=== PATIENT | male | born 1995 | race Caucasian/White ===

== ENCOUNTER 2019-02-26 16:06 | Emergency (ER) | payer BC, OTHER ==
[2019-02-26] MEDS ORDERED: TETRACAINE HCL 0.5% 4ML OPTH ONE (18:02)
[2019-02-26] MEDS ORDERED: FLUORESCEIN SODIUM 1 MG/WRAP ONE (18:03)
--- NOTE | 2019-02-26 18:28 | ER ---
Nurse's Notes [facility] Name: Rui Ross Age: 23 yrs Sex: Male : 1995 Arrival Date: 02/26/2019 Time: 16:08 Bed 9 Private MD: Don Wise Diagnosis: Injury of conjunctiva and corneal abrasion without foreign body, right eye Presentation: 02/26 16:34 Presenting complaint: Patient states: I went to [facility] and they told me I had a la1 corneal ulcer and gave me some drops but then after I left they called me and told me to come to the ER for further testing to rule something, I forgot what it was though. Transition of care: patient was not received from another setting of care. Onset of symptoms was February 26, 2019. Risk Assessment: Do you want to hurt yourself or someone else? Patient reports no desire to harm self or others. Initial Sepsis Screen: Does the patient meet any 2 criteria? No. Patient's initial sepsis screen is negative. Does the patient have a suspected source of infection? No. Patient's initial sepsis screen is negative. Care prior to arrival: None. 16:34 Method Of Arrival: Ambulatory la1 16:34 Acuity: NOAH 4 la1 Historical: - Allergies: 16:34 Sulfa (Sulfonamide Antibiotics); la1 - PMHx: 16:34 None; la1 - Immunization history:: Adult Immunizations up to date. - Social history:: Smoking status: Patient/guardian denies using tobacco. - Ebola Screening: : No symptoms or risks identified at this time. Screenin:16 Abuse screen: Denies threats or abuse. Nutritional screening: No deficits noted. la1 Tuberculosis screening: No symptoms or risk factors identified. Fall Risk None identified. Assessment: 17:15 Reassessment: EOMS intact, visual marinelli intact. General: Appears in no apparent la1 distress. Behavior is calm, cooperative. Pain: Complains of pain in right eye. Neuro: Level of Consciousness is awake, alert, obeys commands. Cardiovascular: Thorax. EENT: Sclera/Cornea are reddened in outer aspect of conjuctiva of right eye and inner aspect of conjuctiva of right eye corneal ulcer noted to right eye. 18:34 Reassessment: Patient appears in no apparent distress at this time. No changes from la1 previously documented assessment. Patient and/or family updated on plan of care and expected duration. Pain level reassessed. Patient is alert, oriented x 3, equal unlabored respirations, skin warm/dry/pink. Vital Signs: 16:33 BP 113 / 56; Pulse 68; Resp 16; Temp 98.6; Pulse Ox 100% on R/A; Weight 61.23 kg; la1 Height 5 ft. 6 in. (167.64 cm); 16:33 Body Mass Index 21.79 (61.23 kg, 167.64 cm) la1 Visual Acuity: 17:50 Left Eye Visual acuity 20/20, Pupil size 4 mm, ; Right Eye Visual acuity 20/20, Pupil la1 size 4 mm, ; Both Eyes Visual acuity 20/20; With Lenses; ED Course: 16:08 Patient arrived in ED. ag5 16:09 Don Wise MD is Private Physician. ag5 16:35 Triage completed. la1 16:35 Arm band placed on right wrist. la1 17:15 Beltran Pepe RN is Primary Nurse. la1 17:16 Call light in reach. la1 17:28 Lauri No NP is PHCP. pm1 17:28 Amol Yanez MD is Attending Physician. pm1 18:27 Meghan Argueta MD is Referral Physician. pm1 18:34 No provider procedures requiring assistance completed. Patient did not have IV access la1 during this emergency room visit. Administered Medications: 17:51 Drug: Tetracaine Drops 0.5 % 1 drops Route: Ophthalmic; Site: right eye; la1 Outcome: 18:28 Discharge ordered by . pm1 18:34 Discharged to home ambulatory. la1 18:34 Condition: stable 18:34 Discharge instructions given to patient, Instructed on discharge instructions, follow up and referral plans. medication usage, Demonstrated understanding of instructions, follow-up care, medications. 18:35 Patient left the ED. la1 Signatures: Beltran Pepe RN RN la1 Lauri No NP ARMORED VEHICLE OFFICER pm1 Lam Durant ag5
--- NOTE | 2019-02-26 18:28 | EDPHYS ---
[facility] Name: Rui [facility] Age: 23 yrs Sex: Male : 1995 Arrival Date: 02/26/2019 Time: 16:08 Bed 9 Private MD: Don Wise ED Physician Amol Yanez HPI: 02/26 18:27 This 23 yrs old Male presents to ER via Ambulatory with complaints of Right pm1 Eye Problem. 18:27 The patient is experiencing pain, The patient sustained an abrasion, to the right eye, pm1 caused by contact lens. Onset: The symptoms/episode began/occurred yesterday. Duration: the symptoms are continuous. Associated signs and symptoms: Pertinent positives: None. Pertinent negatives: ear ache, fever. Patient wears glasses, wears soft contacts. Severity of symptoms: in the emergency department the symptoms have improved markedly, from yesterday. The patient has been recently seen at an urgent care, today, instructed to follow up to the ER for further evaluation. Was prescribed tobramycin drops. Historical: - Allergies: 16:34 Sulfa (Sulfonamide Antibiotics); la1 - PMHx: 16:34 None; la1 - Immunization history:: Adult Immunizations up to date. - Social history:: Smoking status: Patient/guardian denies using tobacco. - Ebola Screening: : No symptoms or risks identified at this time. ROS: 18:27 Constitutional: Negative for fever, chills, and weight loss. pm1 18:27 ENT: Negative for injury, pain, and discharge, Neck: Negative for injury, pain, and swelling, Cardiovascular: Negative for chest pain, palpitations, and edema, Respiratory: Negative for shortness of breath, cough, wheezing, and pleuritic chest pain, Abdomen/GI: Negative for abdominal pain, nausea, vomiting, diarrhea, and constipation, Back: Negative for injury and pain, MS/Extremity: Negative for injury and deformity, Skin: Negative for injury, rash, and discoloration, Neuro: Negative for headache, weakness, numbness, tingling, and seizure. 18:27 Eyes: Positive for pain, redness, Negative for blurry vision, discharge, matting. Exam: 18:27 Constitutional: This is a well developed, well nourished patient who is awake, alert, pm1 and in no acute distress. Head/Face: Normocephalic, atraumatic. ENT: Nares patent. No nasal discharge, no septal abnormalities noted. Tympanic membranes are normal and external auditory canals are clear. Oropharynx with no redness, swelling, or masses, exudates, or evidence of obstruction, uvula midline. Mucous membranes moist. 18:27 Neck: Trachea midline, no thyromegaly or masses palpated, and no cervical lymphadenopathy. Supple, full range of motion without nuchal rigidity, or vertebral point tenderness. No Meningismus. Chest/axilla: Normal chest wall appearance and motion. Nontender with no deformity. No lesions are appreciated. Cardiovascular: Regular rate and rhythm with a normal S1 and S2. No gallops, murmurs, or rubs. Normal PMI, no JVD. No pulse deficits. Respiratory: Lungs have equal breath sounds bilaterally, clear to auscultation and percussion. No rales, rhonchi or wheezes noted. No increased work of breathing, no retractions or nasal flaring. Abdomen/GI: Soft, non-tender, with normal bowel sounds. No distension or tympany. No guarding or rebound. No evidence of tenderness throughout. Back: No spinal tenderness. No costovertebral tenderness. Full range of motion. Skin: Warm, dry with normal turgor. Normal color with no rashes, no lesions, and no evidence of cellulitis. MS/ Extremity: Pulses equal, no cyanosis. Neurovascular intact. Full, normal range of motion. 18:27 Eyes: Periorbital structures: appear normal, no acute changes, no abrasion, no cellulitis, no contusion, no ecchymosis, no erythema, no swelling, Pupils: no acute changes, Extraocular movements: intact throughout, Conjunctiva: injected, in the right eye, Corneas: abrasion, that is small, approximately 0.5 mm(s), at 12 o'clock, foreign body, is not appreciated, a fluorescein strip employed to appreciate the findings, Anterior chamber: normal, Lids and lashes: appear normal. 18:27 Neuro: Orientation: is normal, Motor: is normal, moves all fours. Vital Signs: 16:33 BP 113 / 56; Pulse 68; Resp 16; Temp 98.6; Pulse Ox 100% on R/A; Weight 61.23 kg; la1 Height 5 ft. 6 in. (167.64 cm); 16:33 Body Mass Index 21.79 (61.23 kg, 167.64 cm) la1 Visual Acuity: 17:50 Left Eye Visual acuity 20/20, Pupil size 4 mm, ; Right Eye Visual acuity 20/20, Pupil la1 size 4 mm, ; Both Eyes Visual acuity 20/20; With Lenses; MDM: 17:39 Patient medically screened. pm1 18:27 Data reviewed: vital signs. Data interpreted: Pulse oximetry: on room air is 100 %. pm1 Interpretation: normal. Counseling: I had a detailed discussion with the patient and/or guardian regarding: the historical points, exam findings, and any diagnostic results supporting the discharge/admit diagnosis, the need for outpatient follow up, an opthalmologist, to return to the emergency department if symptoms worsen or persist or if there are any questions or concerns that arise at home. 18:30 ED course: Patient has a prescription for tobramycin that he has already administered pm1 today after being seen at urgent care. 02/26 17:43 Order name: Visual Acuity; Complete Time: 17:51 pm1 02/26 17:43 Order name: Eye Tray; Complete Time: 17:51 pm1 02/26 17:43 Order name: Fluoresene Opth strip; Complete Time: 17:51 pm1 Administered Medications: 17:51 Drug: Tetracaine Drops 0.5 % 1 drops Route: Ophthalmic; Site: right eye; [facility] Disposition: 02/26/19 18:28 Discharged to Home. Impression: Injury of conjunctiva and corneal abrasion without foreign body, right eye. - Condition is Stable. - Discharge Instructions: Corneal Abrasion. - Medication Reconciliation Form, Thank You Letter, Antibiotic Education, Prescription Opioid Use form. - Follow up: Emergency Department; When: As needed; Reason: Worsening of condition. Follow up: Meghan Argueta MD; When: 2 - 3 days; Reason: Recheck today's complaints, Continuance of care, Re-evaluation by your physician. - Problem is new. - Symptoms have improved. Addendum: 02/28/2019 02:31 Co-signature as Attending Physician, Amol Yanez MD. g s Signatures: Beltran Pepe, EULALIO RN la1 Lauri No, LICENSED OCCUPATIONAL THERAPY ASSISTANT LICENSED OCCUPATIONAL THERAPY ASSISTANT pm1 Amol Yanez MD MD gs Corrections: (The following items were deleted from the chart) 02/26 18:35 18:28 02/26/2019 18:28 Discharged to Home. Impression: Injury of conjunctiva and la1 corneal abrasion without foreign body, right eye. Condition is Stable. Forms are Medication Reconciliation Form, Thank You Letter, Antibiotic Education, Prescription Opioid Use. Follow up: Emergency Department; When: As needed; Reason: Worsening of condition. Follow up: Meghan Argueta; When: 2 - 3 days; Reason: Recheck today's complaints, Continuance of care, Re-evaluation by your physician. Problem is new. Symptoms have improved. pm1
[2019-02-26 18:39] VITALS: BP 113/56; TEMP 98.6; O2SAT 100
== END 2019-02-26 18:35 | disposition home or self-care (01) ==
LOC: ER 16:06
DX: S05.01XA Injury of conjunctiva and corneal abrasion without foreign body, right eye, initial encounter (principal); H18.821 Corneal disorder due to contact lens, right eye; Z88.2 Allergy status to sulfonamides
CPT/HCPCS: 99283